=== PATIENT | female | born 1960 | race Two or more races ===

== ENCOUNTER 2024-04-14 08:08 | Emergency (ER) | payer OTHER, MEDICAID ==
[~2024-04-14] VITALS: Ht 157.5 cm; Wt 59.6 kg
[2024-04-14 08:46] VITALS: BP 134/68; PULSE 80; RESP 17; TEMP 97.6; O2SAT 99
[2024-04-14] MEDS ORDERED: ACET-1080 PO (09:17)
[2024-04-14] MEDS ORDERED: METH-1181 PO (09:17)
== END 2024-04-14 09:21 | disposition home or self-care (01) ==
LOC: ER 08:08
DX: S16.1XXA Strain of muscle, fascia and tendon at neck level, initial encounter (principal); S29.012A Strain of muscle and tendon of back wall of thorax, initial encounter; E11.9 Type 2 diabetes mellitus without complications; Z88.0 Allergy status to penicillin; V49.9XXA Car occupant (driver) (passenger) injured in unspecified traffic accident, initial encounter; Y93.89 Activity, other specified; Y92.89 Other specified places as the place of occurrence of the external cause; Y99.8 Other external cause status
CPT/HCPCS: 72040; 72070

== ENCOUNTER 2025-06-21 15:40 | Inpatient (IN) | payer OTHER, MEDICAID ==
[~2025-06-21 15:40] MED LIST: ACET-1080 PO; METH-1181 PO
[2025-06-21 16:49] LABS: Chloride 106 mmol/L (98-107); Potassium 3.7 mmol/L (3.5-5.1); Sodium 143 mmol/L (136-145)
[2025-06-21 16:50] LABS: Anion Gap 13 (5-15); Carbon Dioxide 24 mmol/L (20-31)
--- NOTE | 2025-06-21 16:50 | ED.PDOC ---
History of Present Illness HPI Comments 64 y/o F, with PMHx of DM presents to the ED for CC of dizziness. Patient states, she has been experiencing intermittent episodes of dizziness with associated symptoms of shortness of breath and fatigue sudden onset, today (06/21/25). Patient denies blurred vision, nausea, vomiting, headache, body- aches, ear pain, or ear ringing. No other associated symptoms, modifiers, recent injuries or sick contacts are present at this time. Chief Complaint: Dizziness Time Seen by MD: 16:30 Primary Care Provider: NILDA Reviewed Notes: Nurses Notes, Medications, Allergies Allergies: Coded Allergies: Penicillins (Verified Allergy, Unknown, 04/14/24) Home Meds Active Scripts Methocarbamol (Methocarbamol) 500 Mg Tab, 500 MG PO BID, #20 TAB Prov:SORIN LEON 04/14/24 Acetaminophen (Tylenol 8 Hour Arthritis) 650 Mg Tab, 650 MG PO TID, #30 TAB Prov:SORIN LEON 04/14/24 Information Source: Patient Mode of Arrival: Ambulatory Severity: Moderate Timing: Hours Duration: Since onset Prehospital treatment: None Past Medical History PAST MEDICAL HISTORY: DM Surgical History: Denies all surgeries DISPUTE SPECIALIST History: No Pertinent DISPUTE SPECIALIST History Family History Family History: Reviewed,noncontributory to illness Social History Smoker: Non-Smoker Alcohol: Denies ETOH Use Drugs: Denies Drug Use Lives In: Home Constitutional: reports: fatigue; denies: chills, diaphoresis, fever, malaise, sweats, weakness, others EENTM: denies: blurred vision, double vision, ear bleeding, ear discharge, ear drainage, ear pain, ear ringing, eye pain, eye redness, hearing loss, mouth pain, mouth swelling, nasal discharge, nose bleeding, nose congestion, nose pain, photophobia, tearing, throat pain, throat swelling, voice changes, others Respiratory: reports: shortness of breath; denies: cough, hemoptysis, orthopnea, SOB at rest, SOB with excertion, stridor, wheezing, others Cardiovascular: denies: chest pain, dizzy spells, diaphoresis, Dyspnea on exertion, edema, irregular heart beat, left arm pain, lightheadedness, palpitations, PND, syncope, others Gastrointestinal: denies: abdomen distended, abdominal pain, blood streaked bowels, constipated, diarrhea, dysphagia, difficulty swallowing, hematemesis, melena, nausea, poor appetite, poor fluid intake, rectal bleeding, rectal pain, vomiting, others Genitourinary: denies: abnormal vagina bleeding, burning, dyspareunia, dysuria, flank pain, frequency, hematuria, incontinence, pain, , vagina discharge, urgency, others Neurological: reports: dizziness; denies: fainting, headache, left sided nu mbness, left sided weakness, numbness, paresthesia, pre-existing deficit, right sided numbness, right sided weakness, seizure, speech problems, tingling, tremors, weakness, others Musculoskeletal: denies: back pain, gout, joint pain, joint swelling, muscle pain, muscle stiffness, neck pain, others Integumetry: denies: bruises, change in color, change in hair/nails, dryness, laceration, lesions, lumps, rash, wounds, others Allergic/Immunocompromised: denies: Difficulty Healing, Frequent Infections, Hives, Itching, others Hematologic/Lymphatic: denies: anemia, blood clots, easy bleeding, easy bruising, swollen glands, others Endocrine: denies: excessive hunger, excessive sweating, excessive thirst, excessive urination, flushing, intolerance to cold, intolerance to heat, unexpla ined weight gain, unexplained weight loss, others Psychiatric: denies: anxiety, bipolar disorder, depression, hopeless, panic disorder, schizophrenia, sleepless, suicidal, others All Other Systems: Reviewed and Negative Physical Exam General Appearance: No Apparent Distress, Normal HEENT: Normal ENT Inspection, Pharynx Normal, TMs Normal Neck: Full Range of Motion, Non-Tender, Normal, Normal Inspection Respiratory: Chest Non-Tender, Lungs Clear, No Accessory Muscle Use, No Respiratory Distress, Normal Breath Sounds Cardiovascular: No Edema, No JVD, No Murmur, No Gallop, Normal Peripheral Pulses, Regular Rate/Rhythm Breast Exam: Deferred Gastrointestinal: No Organomegaly, Non Tender, No Pulsatile Mass, Normal Bowel Sounds, Soft Genitalia: Deferred Pelvic: Deferred Rectal: Deferred Extremities: No calf tenderness, Normal capillary refill, Normal inspection, Normal range of motion, Non-tender, No pedal edema Musculoskeletal : Apperance: Normal Neurologic: Alert, mental health director II-XII nml as Tested, No Motor Deficits, Normal Affect, Normal Mood, No Sensory Deficits Cerebellar Function: Normal Reflexes: Normal Skin: Dry, Normal Color, Warm Lymphatic: No Adenopathy Was a procedure done? Was a procedure done?: No Differential Dx Considerations may include: vertigo, dehydration, electrolyte imbalance, hypotension, hypoglycemia, URI, influenza X-Ray, Labs, Meds, VS Vital Signs Date Time Temp Pulse Resp B/P (MAP) Pulse Ox O2 Delivery O2 Flow Rate FiO2 06/21/25 15:50 69 06/21/25 15:42 97.0 80 20 149/43 96 97.0 Lab Test 06/21/25 17:38 06/21/25 16:31 Range/Units Troponin I High Sensitivity < 3 L < 3 L </=34 ng/L White Blood Count 8.8 4.4-10.8 10^3/uL Red Blood Count 4.03 4.0-5.20 10^6/uL Hemoglobin 12.3 12.2-16.2 g/dL Hematocrit 36.6 36.0-46.0 % Mean Corpuscular Volume 90.7 80.0-100.0 fL Mean Corpuscular Hemoglobin 30.5 28.0-32.0 pg Mean Corpuscular Hemoglobin Concent 33.7 32.0-36.0 g/dL Red Cell Distribution Width 15.4 H 11.8-14.3 % Platelet Count 314 140-450 10^3/uL Mean Platelet Volume 6.9 6.9-10.8 fL Neutrophils (%) (Auto) 64.7 37.0-80.0 % Lymphocytes (%) (Auto) 30.1 10.0-50.0 % Monocytes (%) (Auto) 4.4 0.0-12.0 % Eosinophils (%) (Auto) 0.5 0.0-7.0 % Basophils (%) (Auto) 0.3 0.0-2.0 % Neutrophils # (Auto) 5.7 1.6-8.6 10 ^3/uL Lymphocytes # (Auto) 2.7 0.4-5.4 10 ^3/uL Monocytes # (Auto) 0.4 0-1.3 10 ^3/uL Eosinophils # (Auto) 0 0-0.8 10 ^3/uL Basophils # (Auto) 0 0-0.2 10 ^3/uL Nucleated Red Blood Cells 0.0 % Sodium Level 143 136-145 mmol/L Potassium Level 3.7 3.5-5.1 mmol/L Chloride Level 106 98-107 mmol/L Carbon Dioxide Level 24 20-31 mmol/L Anion Gap 13 5-15 Blood Urea Nitrogen 14 9-23 mg/dL Creatinine 1.08 H 0.550-1.02 mg/dL Glomerular Filtration Rate Calc 58 >90 mL/min BUN/Creatinine Ratio 13.0 10.0-20.0 Serum Glucose 110 H 74-106 mg/dL Calcium Level 9.3 8.7-10.4 mg/dL Time of 1ST Reevaluation: 17:00 Reevaluation 1ST: Unchanged Patient Education/Counseling: Diagnosis, Treatment Family Education/Counseling: No Family Present SEPSIS Sepsis Screen Date sepsis recognized/suspect: Jun 21, 2025 Time Sepsis recognized/suspect: 1543 Recent Procedure: No On Antibiotic Therapy: No Respiratory Rate >20: No Heart Rate >90: No Temp<36 C (96.8 F) or >38.3 C: No SBP <90 or MAP <65 mmHG: No New Acute Mental Status Change: No Is the patient on CPAP, BIPAP,: No Physician Orders Electrocardigram (06/21/25 15:58) Urinalysis (06/21/25 16:22) Chest Portable (06/21/25 16:22) Troponin-I Hs (06/21/25 19:22) Vital Signs Date Time Temp Pulse Resp B/P (MAP) Pulse Ox O2 Delivery O2 Flow Rate FiO2 06/21/25 15:50 69 06/21/25 15:42 97.0 80 20 149/43 96 97.0 Laboratory Tests Test 06/21/25 16:31 White Blood Count 8.8 10^3/uL (4.4-10.8) Departure 1 Departure Time of Disposition: 18:20 (Patient's worsening shortness of breath and near- syncope. We will admit patient for further further workup and expert consultation) Impression: Primary Impression: Autonomic dysfunction Additional Impressions: Near syncope Generalized weakness Disposition: ADMITTED INPATIENT Admit to: Tele Condition: Serious Critical Care Note Critical Care Time?: No Stability Stability form required: No Heart Score Heart Score: Heart Score Response (Comments) Value History N/A 0 EKG N/A 0 Age N/A 0 Risk Factors N/A 0 Troponin N/A 0 Total 0 I personally scribed for JOANNE MICHELE MD ([email or web address]) on 06/21/25 at 16:50. Electronically submitted by Amada Hernandez [email or web address]). JOANNE MICHELE MD Jun 21, 2025 16:50
[2025-06-21 16:51] LABS: Calcium 9.3 mg/dL (8.7-10.4)
[2025-06-21 16:52] LABS: Hematocrit 36.6 % (36.0-46.0); Hemoglobin 12.3 g/dL (12.2-16.2); Mean Corpuscular Hemoglobin 30.5 pg (28.0-32.0); Mean Corpuscular Volume 90.7 fL (80.0-100.0); Nucleated Red Blood Cells % 0.0 %
[2025-06-21 16:56] LABS: BUN/Creatinine Ratio 13.0 (10.0-20.0); Blood Urea Nitrogen 14 mg/dL (9-23)
[2025-06-21 16:57] LABS: Glucose 110 mg/dL (74-106)
--- NOTE | 2025-06-21 17:40 | DVH ---
CHEST RADIOGRAPH Indication: sob Technique: Single frontal view of the chest was obtained COMPARISON: None FINDINGS: Lungs and pleural spaces are clear. Cardiac silhouette and felicita are within normal limits. Bones and s oft tissues demonstrate no significant abnormality. IMPRESSION: No acute disease.
[2025-06-21 20:50] VITALS: BP 136/70; PULSE 62; RESP 16; TEMP 98.1; O2SAT 99
--- NOTE | 2025-06-21 21:27 | DVHHPRES ---
History of Present Illness Resident Creating Document: KAT MCCLELLAN RESIDENT History of Present Illness This is a 64-year-old female with past medical history of diabetes mellitus, hypertension, hyperlipidemia, osteoporosis, depression, peripheral neuropathy, presented to the ER with chief complain of dizziness and shortness of breaths. Her symptoms started in the morning, she reports dizziness, shortness of breath is associated with stabbing pain in her chest. She also complained of 1 episode of diarrhea, her stools were bloody red/black in color, associated with abdominal pain. Patient also complained of 2-3 episodes of spotting, reportedly she had menopause at the age of 37 years. PMHx: Diabetes mellitus, hypertension, hyperlipidemia, osteoporosis, depression, peripheral neuropathy PSHx: 3 sections, carpal tunnel surgery Family history: [place] in both father and mother Social history: Denies alcohol, smoking, drug use. Lives in house with family, next to kin is daughter. Full code Home medication: Sertraline, baclofen, glimepiride, metformin, rosuvastatin, omeprazole Allergic history: Penicillin Patient was examined at bedside today. Review of Systems Review of Systems ROS: Constitutional: Denies weight loss, fever and chills. HEENT: Denies changes in vision and hearing. Respiratory: Denies shortness of breath and cough Cardiovascular: Denies chest discomfort or palpitations GI: Bloody diarrhea and abdominal pain. Denies nausea, vomiting : Denies dysuria and urinary frequency. Musculoskeletal: Denies myalgias and joint pain Skin: Denies rash and pruritus. Neurological: Dizziness Allergies: Coded Allergies: Penicillins (Verified Allergy, Unknown, 04/14/24) Exam Vital Signs Vital Signs Date Time Temp Pulse Resp B/P (MAP) Pulse Ox O2 Delivery O2 Flow Rate FiO2 06/21/25 20:50 98.1 62 16 136/70 (92) 99 98.1 Exam General: Patient alert and oriented in person, place and time. Patient following commands. HEENT: Normocephalic, atraumatic, moist mucous membranes Respiratory/pulmonary: Clear lungs bilaterally, vesicular murmurs present in almost all lung anne, no associated crackles or wheezes. Cardiovascular: Normal heart sounds S1 and S2 with no associated murmurs Abdomen: Localized tenderness in epigastric area, costovertebral angle tenderness present. Tenderness on palpation in lower abdomen Extremities: There is no peripheral edema present at the lower extremities. Peripheral Pulses: 3+ Radial (R). 3+ Radial (L). 3+ Dorsalis pedis (R). 3+ Dorsalis pedis(L) Skin: No rashes or pruritus, there is no sacral edema present at this time. Neurological: Intact cranial nerves with no focal neurologic deficits Labs/Xrays Labs Test 06/21/25 19:22 06/21/25 16:31 Range/Units Troponin I High Sensitivity < 3 L </=34 ng/L White Blood Count 8.8 4.4-10.8 10^3/uL Red Blood Count 4.03 4.0-5.20 10^6/uL Hemoglobin 12.3 12.2-16.2 g/dL Hematocrit 36.6 36.0-46.0 % Mean Corpuscular Volume 90.7 80.0-100.0 fL Mean Corpuscular Hemoglobin 30.5 28.0-32.0 pg Mean Corpuscular Hemoglobin Concent 33.7 32.0-36.0 g/dL Red Cell Distribution Width 15.4 H 11.8-14.3 % Platelet Count 314 140-450 10^3/uL Mean Platelet Volume 6.9 6.9-10.8 fL Neutrophils (%) (Auto) 64.7 37.0-80.0 % Lymphocytes (%) (Auto) 30.1 10.0-50.0 % Monocytes (%) (Auto) 4.4 0.0-12.0 % Eosinophils (%) (Auto) 0.5 0.0-7.0 % Basophils (%) (Auto) 0.3 0.0-2.0 % Neutrophils # (Auto) 5.7 1.6-8.6 10 ^3/uL Lymphocytes # (Auto) 2.7 0.4-5.4 10 ^3/uL Monocytes # (Auto) 0.4 0-1.3 10 ^3/uL Eosinophils # (Auto) 0 0-0.8 10 ^3/uL Basophils # (Auto) 0 0-0.2 10 ^3/uL Nucleated Red Blood Cells 0.0 % Sodium Level 143 136-145 mmol/L Potassium Level 3.7 3.5-5.1 mmol/L Chloride Level 106 98-107 mmol/L Carbon Dioxide Level 24 20-31 mmol/L Anion Gap 13 5-15 Blood Urea Nitrogen 14 9-23 mg/dL Creatinine 1.08 H 0.550-1.02 mg/dL Glomerular Filtration Rate Calc 58 >90 mL/min BUN/Creatinine Ratio 13.0 10.0-20.0 Serum Glucose 110 H 74-106 mg/dL Calcium Level 9.3 8.7-10.4 mg/dL SEPSIS Sepsis Screen Date sepsis recognized/suspect: Jun 21, 2025 Time Sepsis recognized/suspect: 1544 Recent Procedure: No On Antibiotic Therapy: No Respiratory Rate >20: No Heart Rate >90: No Temp<36 C (96.8 F) or >38.3 C: No SBP <90 or MAP <65 mmHG: No New Acute Mental Status Change: No Is the patient on CPAP, BIPAP,: No Physician Orders Electrocardigram (06/21/25 15:58) Urinalysis (06/21/25 16:22) Chest Portable (06/21/25 16:22) Vital Signs Date Time Temp Pulse Resp B/P (MAP) Pulse Ox O2 Delivery O2 Flow Rate FiO2 06/21/25 20:50 98.1 62 16 136/70 (92) 99 98.1 06/21/25 15:50 69 06/21/25 15:42 97.0 80 20 149/43 96 97.0 Laboratory Tests Test 06/21/25 16:31 White Blood Count 8.8 10^3/uL (4.4-10.8) Assessment/Plan Assessment/Plan Presyncope Acute GI hemorrhage likely Acute intrauterine bleed, possible Chest x-ray shows no acute disease Ultrasound pelvis shows diffusely thin endometrium with small amount of fluid in endometrial canal, nonvisualization of ovaries. Continue pantoprazole 40, ondansetron as needed Ordered stool occult blood, urine analysis Ordered echocardiogram Continue IV fluids Diabetes mellitus type 2 Sliding scale with basal insulin A1c 5.9 Monitor blood glucose Diabetes education Diabetic diet Essential Hypertension Hyperlipidemia Atorvastatin 40 mg daily Depression Continue Sertraline 50 DIET: NPO DVT PROPHYLAXIS: Sequential compression device GI PROPHYLAXIS: Protonix CODE STATUS: Goals of care discussed with patient at bedside for more than 35 minutes. Full code DISPOSITION: Telemetry Patient's status and plan discussed with the patient. Case discussed with Dr. Trimble Plan discussed with: Patient, Other (Nurses) Date of Service: Jun 21, 2025 Billing Provider: MARGE TRIMBLE MD Common Visit Codes: 02076-[id number] INP/OBS CARE (HIGH) Secondary Visit Codes: 58893-QHYNWWLA CARE PLAN 30 MINUTES KAT MCCLELLAN RESIDENT Jun 21, 2025 21:27 MICHELLE MOSHER RESIDENT Jun 22, 2025 08:30
[2025-06-21 22:04] LABS: Alanine Aminotransferase 12 U/L (7-40); Albumin 4.4 g/dL (3.2-4.8); Alkaline Phosphatase 54 U/L (46-116); Cholesterol 106 mg/dL (< 200); HDL Cholesterol 46 mg/dL (40-59); Magnesium 1.9 mg/dL (1.6-2.6); Total Protein 7.7 g/dL (5.7-8.2); Triglycerides 90 mg/dL (< 150)
[2025-06-21 22:04] LABS: INR 1.05 (0.9-1.15); Partial Thromboplastin Time 26.8 SEC (24.5-34.5); Prothrombin Time 11.1 sec (9.3-11.8)
[2025-06-21 22:05] LABS: Bilirubin, Direct < 0.1 mg/dL (<0.3); Bilirubin, Total 0.2 mg/dL (0.2-1.0)
[2025-06-21 22:18] LABS: Lipase 54 U/L (12-53)
[2025-06-21] MEDS ORDERED: MORPHINE SULFATE INJ 2 MG/ml SYRG IV PRN (23:45)
[2025-06-21] MEDS ORDERED: ONDANSETRON HCL 4 MG/2 ML VIAL IV PRN (23:45)
[2025-06-22] MEDS ORDERED: SODIUM CHLORIDE 0.9% 1,000 ML IV SCH
[2025-06-22] MEDS: InsuLIN REG 1unit/0.01ml Soln (100units/ml) SC ONE (00:15)
[2025-06-22] MEDS: DEXTROSE (50%) 50ML SYRG IV ONE (00:15)
[2025-06-22] MEDS: ACCU-CHEK COMFORT CURVE STRIP VI ONE (00:15)
[2025-06-22] MEDS ORDERED: DEXTROSE (50%) 50ML SYRG IV PRN (00:15)
--- NOTE | 2025-06-22 01:10 | DVH ---
INDICATION: AUB TECHNIQUE: Multiple real-time grayscale transabdominal and transvaginal sonographic images along with color and duplex Doppler of the uterus and ovaries were obtained. COMPARISON: None FINDINGS: The uterus measures 4.8 x 3.4 x 2.4 cm. The endometrial stripe measures 2 mm. Small amount of simple appearing fluid in the endometrial canal. Ovaries not visualized due to technique, positioning, overlying bowel-gas, and/or body habitus. No visualized ascites. IMPRESSION: 1. Diffusely thin endometrium with small amount of fluid in the endometrial canal, suggesting atrophy . 2. Nonvisualization of the ovaries.
[2025-06-22] MEDS: ACETAMINOPHEN 325 MG TAB PO PRN (01:25)
--- NOTE | 2025-06-22 02:53 | DVH ---
INDICATION: LINUS TECHNIQUE: Multiple real-time sonographic images of the kidneys and bladder were obtained. COMPARISON: None FINDINGS: RIGHT kidney measures 9.2 cm in length with normal parenchymal echotexture and cortical thickness. No evidence of nephrolithiasis or hydronephrosis. LEFT kidney measures 9.2 cm in length with normal parenchymal echotexture and cortical thickness. No evidence of nephrolithiasis or hydronephrosis. No large intraluminal masses are seen in the bladder. The urinary bladder is moderately distended. No significant postvoid residual. IMPRESSION: Unremarkable renal ultrasound.
[2025-06-22 05:05] LABS: Urine Protein, UAD 1+ (Negative); Urine WBC Clumps PRESENT /hpf (None Seen)
[2025-06-22 05:11] LABS: Amphetamine Screen, Urine Neg (NEGATIVE); Barbiturate Scree,Urine Neg (NEGATIVE); Benzodiazephine Screen, Urine Neg (NEGATIVE); Cannabinoid Screen, Urine Neg (NEGATIVE); Cocaine Screen, Urine Neg (NEGATIVE); Opiate Scree,Urine Neg (NEGATIVE); Phencyclidine Screen, Urine Neg (NEGATIVE)
[2025-06-22] MEDS ORDERED: ACCU-CHEK COMFORT CURVE STRIP VI SCH (07:00)
[2025-06-22] MEDS ORDERED: InsuLIN REG 1unit/0.01ml Soln (100units/ml) SC SCH (07:00)
--- NOTE | 2025-06-22 07:58 | DVHDSRES ---
Discharge Summary Date of Admission Resident Creating Document: KAT MCCLELLAN RESIDENT Jun 21, 2025 at 23:34 Date of Discharge: Jun 22, 2025 Labs/Diagnostic Data: Laboratory Results Test 06/22/25 04:20 06/22/25 01:10 06/21/25 19:22 06/21/25 17:58 Urine Color Colorless (Yellow) Urine Clarity Ex.turbid (Clear) Urine pH 5.5 (5.0-9.0) Urine Specific [place] 1.015 (1.001-1.035) Urine Protein 1+ (Negative) Urine Ketones Negative (Negative) Urine Blood 2+ /uL (Negative) Urine Nitrite 2+ (Negative) Urine Bilirubin Negative (Negative) Urine Urobilinogen Normal mg/dL (Negative) Urine Leukocyte Esterase 3+ /uL (Negative) Urine RBC 29 /hpf (0 - 4) Urine WBC Clumps Present /hpf (None Seen) Urine Microscopic WBC 307 /HPF (0-5) Urine Squamous Epithelial Cells Few /hpf (<5) Urine Bacteria Mod /hpf (None Seen) Urine Mucus Few (None Seen) Urine Glucose Normal mg/dL (Normal) Urine Opiates Screen Neg (NEGATIVE) Urine Fentanyl Screen Neg (NEGATIVE) Urine Barbiturates Screen Neg (NEGATIVE) Urine Phencyclidine Screen Neg (NEGATIVE) Urine Amphetamines Screen Neg (NEGATIVE) Urine Benzodiazepines Screen Neg (NEGATIVE) Urine Cocaine Screen Neg (NEGATIVE) Urine Cannabinoids Screen Neg (NEGATIVE) POC Glucose 120 mg/dl (70-106) Prothrombin Time 11.1 sec (9.3-11.8) Prothrombin Time INR 1.05 (0.9-1.15) Activated Partial Thromboplast Time 26.8 SEC (24.5-34.5) Troponin I High Sensitivity < 3 ng/L (</=34) Phosphorus Level 3.9 mg/dL (2.4-5.1) Magnesium Level 1.9 mg/dL (1.6-2.6) Total Bilirubin 0.2 mg/dL (0.2-1.0) Direct Bilirubin < 0.1 mg/dL (<0.3) Aspartate Amino Transferase (AST) 26 U/L (13-40) Alanine Aminotransferase (ALT) 12 U/L (7-40) Alkaline Phosphatase 54 U/L (46-116) C-Reactive Protein High Sensitivity 0.10 mg/dL (<1.0) Total Protein 7.7 g/dL (5.7-8.2) Albumin 4.4 g/dL (3.2-4.8) Triglycerides Level 90 mg/dL (< 150) Cholesterol Level 106 mg/dL (< 200) LDL Cholesterol 51 mg/dL (< 100) HDL Cholesterol 46 mg/dL (40-59) Lipase 54 U/L (12-53) Test 06/21/25 16:31 White Blood Count 8.8 10^3/uL (4.4-10.8) Red Blood Count 4.03 10^6/uL (4.0-5.20) Hemoglobin 12.3 g/dL (12.2-16.2) Hematocrit 36.6 % (36.0-46.0) Mean Corpuscular Volume 90.7 fL (80.0-100.0) Mean Corpuscular Hemoglobin 30.5 pg (28.0-32.0) Mean Corpuscular Hemoglobin Concent 33.7 g/dL (32.0-36.0) Red Cell Distribution Width 15.4 % (11.8-14.3) Platelet Count 314 10^3/uL (140-450) Mean Platelet Volume 6.9 fL (6.9-10.8) Neutrophils (%) (Auto) 64.7 % (37.0-80.0) Lymphocytes (%) (Auto) 30.1 % (10.0-50.0) Monocytes (%) (Auto) 4.4 % (0.0-12.0) Eosinophils (%) (Auto) 0.5 % (0.0-7.0) Basophils (%) (Auto) 0.3 % (0.0-2.0) Neutrophils # (Auto) 5.7 10 ^3/uL (1.6-8.6) Lymphocytes # (Auto) 2.7 10 ^3/uL (0.4-5.4) Monocytes # (Auto) 0.4 10 ^3/uL (0-1.3) Eosinophils # (Auto) 0 10 ^3/uL (0-0.8) Basophils # (Auto) 0 10 ^3/uL (0-0.2) Nucleated Red Blood Cells 0.0 % Sodium Level 143 mmol/L (136-145) Potassium Level 3.7 mmol/L (3.5-5.1) Chloride Level 106 mmol/L (98-107) Carbon Dioxide Level 24 mmol/L (20-31) Anion Gap 13 (5-15) Blood Urea Nitrogen 14 mg/dL (9-23) Creatinine 1.08 mg/dL (0.550-1.02) Glomerular Filtration Rate Calc 58 mL/min (>90) BUN/Creatinine Ratio 13.0 (10.0-20.0) Serum Glucose 110 mg/dL (74-106) Hemoglobin A1c 5.9 % A1C (<5.7) Calcium Level 9.3 mg/dL (8.7-10.4) Vitamin D 25-Hydroxy 31.1 ng/mL (30.0-100) Thyroid Stimulating Hormone (TSH) 0.75 uIU/mL (0.55-4.78) Other Laboratory Tests 06/21/25 16:31 Brief Hx & Hospital Course: History on arrival: This is a 64-year-old female with past medical history of diabetes mellitus, hypertension, hyperlipidemia, osteoporosis, depression, peripheral neuropathy, presented to the ER with chief complain of dizziness and shortness of breaths. Her symptoms started in the morning, she reports dizziness, shortness of breath is associated with stabbing pain in her chest. She also complained of 1 episode of diarrhea, her stools were bloody red/black in color, associated with abdominal pain. Patient also complained of 2-3 episodes of spotting, reportedly she had menopause at the age of 37 years. PMHx: Diabetes mellitus, hypertension, hyperlipidemia, osteoporosis, depression, peripheral neuropathy PSHx: 3 sections, carpal tunnel surgery Family history: [place] in both father and mother Social history: Denies alcohol, smoking, drug use. Lives in house with family, next to kin is daughter. Full code Home medication: Sertraline, baclofen, glimepiride, metformin, rosuvastatin, omeprazole Allergic history: Penicillin Admitting diagnosis: Presyncope, rule out cardiogenic etiology Acute GI hemorrhage likely Acute intrauterine bleed, possible Diabetes mellitus type 2 Essential Hypertension Hyperlipidemia Depression Patient requested to leave AMA. Patient was counseled on diagnosis, recommend in treatment and risks of leaving AMA on several occasions. Alternatives to living were offered, including continued inpatient management. Patient verbalized the understanding of risks, benefits and alternatives on several occasions. Patient signed AMA form and was discharged against medical advice. Operations or Procedures CHEST RADIOGRAPH Indication: sob Technique: Single frontal view of the chest was obtained COMPARISON: None FINDINGS: Lungs and pleural spaces are clear. Cardiac silhouette and felicita are within normal limits. Bones and soft tissues demonstrate no significant abnormality. IMPRESSION: No acute disease. ATED BY: ENRIQUE TORRES MD DICTATED DATE/TIME: 06/21/25 2707 INDICATION: AUB TECHNIQUE: Multiple real-time grayscale transabdominal and transvaginal sonographic images along with color and duplex Doppler of the uterus and ovaries were obtained. COMPARISON: None FINDINGS: The uterus measures 4.8 x 3.4 x 2.4 cm. The endometrial stripe measures 2 mm. Small amount of simple appearing fluid in the endometrial canal. Ovaries not visualized due to technique, positioning, overlying bowel-gas, and/or body habitus. No visualized ascites. IMPRESSION: 1. Diffusely thin endometrium with small amount of fluid in the endometrial canal, suggesting atrophy. 2. Nonvisualization of the ovaries. ATED BY: GENARO SEAY MD DICTATED DATE/TIME: 06/22/25 0107 INDICATION: LINUS TECHNIQUE: Multiple real-time sonographic images of the kidneys and bladder were obtained. COMPARISON: None FINDINGS: RIGHT kidney measures 9.2 cm in length with normal parenchymal echotexture and cortical thickness. No evidence of nephrolithiasis or hydronephrosis. LEFT kidney measures 9.2 cm in length with normal parenchymal echotexture and cortical thickness. No evidence of nephrolithiasis or hydronephrosis. No large intraluminal masses are seen in the bladder. The urinary bladder is moderately distended. No significant postvoid residual. IMPRESSION: Unremarkable renal ultrasound. ATED BY: ERNESTO AGUILAR MD DICTATED DATE/TIME: 06/22/25 0250 Condition at Discharge: Undetermined Final Diagnosis/Problems List Presyncope rule out cardiogenic etiology Acute GI hemorrhage likely Acute intrauterine bleed, possible Diabetes mellitus type 2 Essential Hypertension Hyperlipidemia Depression Discharge Disposition: AMA Discharge Instruct/Medications Scheduled Acetaminophen (Tylenol 8 Hour Arthritis), 650 MG PO TID Methocarbamol (Methocarbamol), 500 MG PO BID Discharge Statement: "Patient was advised to return to the ER or call 911 if any headaches, dizziness, shortness of breath, chest pain, abdominal pain, bleeding, fevers, or worsening of medical condition. Patient was counseled about treatment plan, medications, possible side effects, patientverbalized understanding. All questions were answered to the best of my ability. This discharge took greater then 30 minutes in planning, reviewing documentation, counseling the patient, and discussing with other team members." ASSESSMENT ASSESSMENT Assessment Date of Service: Jun 22, 2025 Billing Provider: MARGE HICKMAN MD Common Visit Codes: 50690-QIP/OBS DISCH DAY >30min KAT MCCLELLAN RESIDENT Jun 22, 2025 07:58 MICHELLE MOSHER RESIDENT Jun 22, 2025 08:31 MARGE HICKMAN MD Jun 22, 2025 19:11
[2025-06-22] MEDS ORDERED: SERTRALINE HCL 50 MG TAB PO SCH (10:00)
[2025-06-22] MEDS ORDERED: PANTOPRAZOLE 40 MG/10 ML VIAL INJ IV SCH (10:00)
[2025-06-22] MEDS ORDERED: ATORVASTATIN 20 MG TAB PO SCH (22:00)
--- NOTE | 2025-06-27 09:18 | ECG ---
[facility] Test Date: 2025-06-21 Test Time: 15:50:22 Pat Name: XAEL BURDICK Department: ED Room: [address] [place] [address] Gender: F [employer] Operator: RAYO : 1960 Requested By: JOANNE MICHELE Order Number: [id number] Reading MD: Measurements Intervals [place] Rate: 69 P: 63 OR: 175 QRS: 82 QRSD: 94 T: 32 QT: 406 QTc: 435 Interpretive Statements Sinus rhythm Borderline right axis deviation Borderline T abnormalities, anterior leads Baseline wander in lead(s) V4,V5 Please click the below link to view image of tracing.
== END 2025-06-22 05:00 | disposition left against medical advice (07) | DRG 309 ==
LOC: ER 15:47 → OVERFLOW 23:34
PROVIDERS: ATTEND Emergency Medicine
DX: I49.9 Cardiac arrhythmia, unspecified (principal); K92.2 Gastrointestinal hemorrhage, unspecified; G90.89 Other disorders of autonomic nervous system; E78.5 Hyperlipidemia, unspecified; F32.A Depression, unspecified; Z53.29 Procedure and treatment not carried out because of patient's decision for other reasons; E11.42 Type 2 diabetes mellitus with diabetic polyneuropathy; M81.0 Age-related osteoporosis without current pathological fracture; I10 Essential (primary) hypertension; Z88.0 Allergy status to penicillin; Z79.899 Other long term (current) drug therapy
CPT/HCPCS: 36415; 71045; 76775; 76830; 76856; 80048; 80061; 80076; 80307; 81001; 82306; 82607; 82962; 83036; 83690; 83735; 84100; 84443; 84484; 85025; 85610; 85730; 86141; G0378